=== PATIENT | female | born 1945 | race African-American/Black ===

== ENCOUNTER 2019-04-14 06:24 | Inpatient (IN) ==
[2019-04-14] MEDS ORDERED: ONDANSETRON 4 MG/2 ML VIAL IV STA (06:59)
[2019-04-14] MEDS ORDERED: SODIUM CHLORIDE 0.9% 1,000 ML IV STA (06:59)
[2019-04-14 07:09] LABS: Basophils % 0.1 % (0.0-0.8); Eosinophils % 0.1 % (0.00-10.9); Hematocrit 35.3 VOL% (35.7-47.0); Hemoglobin 10.8 GM/DL (12.0-16.0); Immature Granulocytes % 0.3 %; Immature Granulocytes Absolute 0.04 #; Lymphocytes # 1.4 10*3/uL (1.4-4.0); Lymphocytes % 9.9 % (21.3-54.2); Mean Corpuscular HGB Conc 30.6 GM/DL (32-36); Mean Corpuscular Volume 95.9 FL (87-102); Mean Platelet Volume 10.7 FL (9.6-12.0); Monocytes % 5.7 % (1.7-12.7); Neutrophils % 83.9 % (38.7-73.9); Platelet Count 233 T/CUMM (130-400); Red Blood Count 3.68 MC/CUMM (3.8-5.5); Red Cell Distribution Width 14.6 % (9.3-17.3); White Blood Count 13.7 T/CUMM (4-12)
[2019-04-14 07:30] LABS: Alanine Aminotransferase 21 U/L (13-56); Albumin 3.1 G/DL (3.4-5.0); Alkaline Phosphatase 81 U/L (45-117); Aspartate Amino Transferase 37 U/L (0-37); Blood Urea Nitrogen 48 MG/DL (7-18); Calcium 8.4 MG/DL (8.5-10.1); Glucose 125 MG/DL (74-106); Osmolality,Calculated 294.3 MOS/KG (273-304); Total Protein 6.9 G/DL (6.4-8.3)
[2019-04-14] MEDS ORDERED: ONDANSETRON 4 MG/2 ML VIAL IV PRN (08:36)
[2019-04-14] MEDS ORDERED: MORPHINE 4 MG/1 ML VIAL IV PRN (08:36)
[2019-04-14] MEDS ORDERED: ACETAMINOPHEN 325 MG TABLET PO PRN (08:36)
[2019-04-14] MEDS ORDERED: PANTOPRAZOLE 40 MG TABLET PO ONE (09:13)
[2019-04-14] MEDS ORDERED: amLODIPine 10 MG TABLET ONE (09:13)
[2019-04-14] MEDS: SODIUM CHLORIDE 0.9% 1,000 ML IV SCH (09:22)
[2019-04-14] MEDS: PANTOPRAZOLE 40 MG TABLET PO SCH (09:38)
[2019-04-14] MEDS: amLODIPine 10 MG TABLET PO SCH (09:38)
[2019-04-14 10:00] LABS: Apearance,Urine CLOUDY (Clear); Bilirubin,Urine Negative (Negative); Blood, Urine Negative (Negative); Glucose,Urine (UA) Negative (Negative); Hyaline Casts,Urine 104 /LPF (0-3); Ketones,Urine Negative (Negative); Mucus,Urine Many /LPF (Occasional); Nitrite,Urine Negative (Negative); Protein,Urine 30 MG/DL; RBC,Urine 1 /HPF (0-4); Urine Color Amber (Yellow); Urine Specific Gravity 1.026 (1.001-1.035); Urine Urobilinogen < 2.0 EU/DL (0.2-1.0); WBC,Urine 2 /HPF (0-6)
[2019-04-14] MEDS ORDERED: LEVOFLOXACIN INJ 500 MG in PREMIX 1 EACH IV ONE (10:30)
[2019-04-14] MEDS ORDERED: NALOXONE 0.4 MG/ML VIAL IV ONE (12:01)
[2019-04-14 12:19] LABS: ABG Base Excess 4.2 MMOL/L (-2.5-2.5); ABG HCO3 27.9 MMOL/L (20-26); ABG Oxygen Saturation 83.9 % (95-100); ABG PCO2 57.3 MM HG (35-48); ABG PH 7.344 (7.35-7.45); ABG PO2 53.1 MM HG (80-95); ABG TCO2 28.5 MMOL/L (23-27)
[2019-04-15 04:42] LABS: Basophils % 0.1 % (0.0-0.8); Eosinophils # 0.3 10*3/uL (0.0-0.87); Eosinophils % 2.3 % (0.00-10.9); Hemoglobin 9.6 GM/DL (12.0-16.0); Immature Granulocytes % 0.4 %; Immature Granulocytes Absolute 0.04 #; Lymphocytes # 1.5 10*3/uL (1.4-4.0); Mean Corpuscular Volume 96.1 FL (87-102); Mean Platelet Volume 10.9 FL (9.6-12.0); Monocytes % 7.2 % (1.7-12.7); Platelet Count 213 T/CUMM (130-400); Red Blood Count 3.33 MC/CUMM (3.8-5.5); Red Cell Distribution Width 14.4 % (9.3-17.3); White Blood Count 10.8 T/CUMM (4-12)
[2019-04-15 04:59] LABS: Osmolality,Calculated 292.4 MOS/KG (273-304); Risk Ratio 3.11; Thyroid Stimulating Hormone 0.251 uIU/ml (0.358-3.74)
[2019-04-15] MEDS: SODIUM CHLORIDE 0.9% 1,000 ML IV SCH ×3 (06:10→17:47)
[2019-04-15] MEDS: PANTOPRAZOLE 40 MG TABLET PO SCH (09:23)
[2019-04-15] MEDS: amLODIPine 10 MG TABLET PO SCH (09:23)
[2019-04-15] MEDS ORDERED: LEVOFLOXACIN INJ 250 MG in PREMIX 1 EACH IV SCH (10:00)
[2019-04-15] MEDS ORDERED: LEVOFLOXACIN INJ 750 MG in PREMIX 1 EACH IV SCH (11:00)
[2019-04-15] MEDS: ALBUTEROL/IPRATROPIUM 3 ML NEB RESP TX SCH ×3 (11:20→20:13)
[2019-04-15] MEDS ORDERED: LEVOFLOXACIN INJ 500 MG in PREMIX 1 EACH IV ONE (12:00)
[2019-04-15] MEDS: POLYETHYLENE GLYCOL POWDER 17 GM PACK PO SCH (14:57)
[2019-04-15] MEDS: DICYCLOMINE 10 MG CAPSULE PO SCH ×2 (14:58→21:48)
[2019-04-16] MEDS: ALBUTEROL/IPRATROPIUM 3 ML NEB RESP TX SCH ×7 (00:07→23:25)
[2019-04-16] MEDS: SODIUM CHLORIDE 0.9% 1,000 ML IV SCH ×2 (00:30→16:32)
[2019-04-16 04:34] LABS: Basophils % 0.1 % (0.0-0.8); Eosinophils # 0.1 10*3/uL (0.0-0.87); Eosinophils % 0.7 % (0.00-10.9); Hematocrit 32.1 VOL% (35.7-47.0); Hemoglobin 9.8 GM/DL (12.0-16.0); Immature Granulocytes % 0.6 %; Immature Granulocytes Absolute 0.06 #; Lymphocytes # 1.1 10*3/uL (1.4-4.0); Lymphocytes % 10.8 % (21.3-54.2); Mean Corpuscular HGB Conc 30.5 GM/DL (32-36); Mean Corpuscular Volume 94.4 FL (87-102); Mean Platelet Volume 10.5 FL (9.6-12.0); Monocytes % 6.8 % (1.7-12.7); NRBC # 0.02 10*3/uL; Platelet Count 231 T/CUMM (130-400); Red Cell Distribution Width 14.2 % (9.3-17.3); White Blood Count 10.3 T/CUMM (4-12)
[2019-04-16 04:51] LABS: Calcium 8.3 MG/DL (8.5-10.1); Osmolality,Calculated 284.3 MOS/KG (273-304)
[2019-04-16] MEDS: LEVOFLOXACIN INJ 750 MG in PREMIX 1 EACH IV SCH (09:33)
[2019-04-16] MEDS: DICYCLOMINE 10 MG CAPSULE PO SCH ×3 (10:33→20:34)
[2019-04-16] MEDS: PANTOPRAZOLE 40 MG TABLET PO SCH (10:33)
[2019-04-16] MEDS: amLODIPine 10 MG TABLET PO SCH (10:33)
[2019-04-16] MEDS: POLYETHYLENE GLYCOL POWDER 17 GM PACK PO SCH (10:33)
[2019-04-16] MEDS: predniSONE 20 MG TABLET PO SCH (12:01)
[2019-04-16] MEDS: CLINDAMYCIN INJ 600 MG in PREMIX 1 EACH IV SCH ×2 (12:01→20:34)
[2019-04-16] MEDS: ENOXAPARIN 40 MG/0.4 ML SYRINGE SUBCUT SCH (12:10)
[2019-04-17] MEDS: ALBUTEROL/IPRATROPIUM 3 ML NEB RESP TX SCH ×6 (03:35→23:11)
[2019-04-17] MEDS: CLINDAMYCIN INJ 600 MG in PREMIX 1 EACH IV SCH ×3 (04:53→22:03)
[2019-04-17 04:54] LABS: Basophils % 0.2 % (0.0-0.8); Hematocrit 32.6 VOL% (35.7-47.0); Immature Granulocytes Absolute 0.11 #; Mean Corpuscular HGB Conc 30.7 GM/DL (32-36); Mean Corpuscular Volume 94.5 FL (87-102); Mean Platelet Volume 10.8 FL (9.6-12.0); Monocytes % 5.6 % (1.7-12.7); Neutrophils % 84.2 % (38.7-73.9); Platelet Count 280 T/CUMM (130-400); Red Blood Count 3.45 MC/CUMM (3.8-5.5); Red Cell Distribution Width 14.2 % (9.3-17.3); White Blood Count 11.5 T/CUMM (4-12)
[2019-04-17 05:17] LABS: Calcium 8.9 MG/DL (8.5-10.1); Osmolality,Calculated 282.3 MOS/KG (273-304)
[2019-04-17] MEDS: PANTOPRAZOLE 40 MG TABLET PO SCH (08:47)
[2019-04-17] MEDS: amLODIPine 10 MG TABLET PO SCH (08:47)
[2019-04-17] MEDS: predniSONE 20 MG TABLET PO SCH (08:47)
[2019-04-17] MEDS: DICYCLOMINE 10 MG CAPSULE PO SCH ×3 (08:47→22:03)
[2019-04-17] MEDS: LEVOFLOXACIN INJ 750 MG in PREMIX 1 EACH IV SCH (08:47)
[2019-04-17] MEDS: POLYETHYLENE GLYCOL POWDER 17 GM PACK PO SCH (08:47)
[2019-04-17] MEDS ORDERED: guaiFENesin 200 MG/10 ML UDCUP PO PRN (08:59)
[2019-04-17] MEDS: LOSARTAN 25 MG TABLET PO SCH (09:41)
[2019-04-17] MEDS ORDERED: FUROSEMIDE 40 MG/4 ML VIAL IV ONE (10:23)
[2019-04-17] MEDS: ENOXAPARIN 40 MG/0.4 ML SYRINGE SUBCUT SCH (11:12)
[2019-04-17] MEDS: MIRTAZAPINE 15 MG TABLET PO SCH (22:03)
[2019-04-18 01:16] LABS: ABG Base Excess 7.2 MMOL/L (-2.5-2.5); ABG Oxygen Saturation 95.4 % (95-100); ABG PCO2 45.1 MM HG (35-48); ABG PH 7.458 (7.35-7.45); ABG PO2 73.5 MM HG (80-95)
[2019-04-18] MEDS: CLINDAMYCIN INJ 600 MG in PREMIX 1 EACH IV SCH ×3 (01:23→17:20)
[2019-04-18] MEDS: ALBUTEROL/IPRATROPIUM 3 ML NEB RESP TX SCH ×6 (03:25→23:38)
[2019-04-18] MEDS: SODIUM CHLORIDE 0.9% 1,000 ML IV SCH (08:46)
[2019-04-18] MEDS: predniSONE 20 MG TABLET PO SCH (08:49)
[2019-04-18] MEDS: amLODIPine 10 MG TABLET PO SCH (08:49)
[2019-04-18] MEDS: DICYCLOMINE 10 MG CAPSULE PO SCH ×3 (08:50→20:56)
[2019-04-18] MEDS: PANTOPRAZOLE 40 MG TABLET PO SCH (08:50)
[2019-04-18] MEDS: POLYETHYLENE GLYCOL POWDER 17 GM PACK PO SCH (08:50)
[2019-04-18] MEDS: LOSARTAN 25 MG TABLET PO SCH (08:50)
[2019-04-18] MEDS: LEVOFLOXACIN INJ 750 MG in PREMIX 1 EACH IV SCH (08:51)
[2019-04-18] MEDS: ENOXAPARIN 40 MG/0.4 ML SYRINGE SUBCUT SCH ×2 (13:39→17:20)
[2019-04-18] MEDS: MIRTAZAPINE 15 MG TABLET PO SCH (20:56)
[2019-04-19] MEDS: CLINDAMYCIN INJ 600 MG in PREMIX 1 EACH IV SCH ×3 (01:36→17:49)
[2019-04-19] MEDS: ALBUTEROL/IPRATROPIUM 3 ML NEB RESP TX SCH ×6 (03:13→23:59)
[2019-04-19 05:19] LABS: Basophils % 0.1 % (0.0-0.8); Hematocrit 33.1 VOL% (35.7-47.0); Hemoglobin 10.2 GM/DL (12.0-16.0); Immature Granulocytes % 1.7 %; Immature Granulocytes Absolute 0.21 #; Lymphocytes # 1.6 10*3/uL (1.4-4.0); Lymphocytes % 12.9 % (21.3-54.2); Mean Corpuscular HGB Conc 30.8 GM/DL (32-36); Mean Corpuscular Volume 93.8 FL (87-102); Mean Platelet Volume 10.9 FL (9.6-12.0); Monocytes % 5.5 % (1.7-12.7); Neutrophils % 79.8 % (38.7-73.9); Platelet Count 298 T/CUMM (130-400); Red Blood Count 3.53 MC/CUMM (3.8-5.5); Red Cell Distribution Width 14.7 % (9.3-17.3); White Blood Count 12.1 T/CUMM (4-12)
[2019-04-19 05:36] LABS: Osmolality,Calculated 288.1 MOS/KG (273-304)
[2019-04-19 06:54] LABS: Alanine Aminotransferase 18 U/L (13-56); Albumin 2.8 G/DL (3.4-5.0); Alkaline Phosphatase 74 U/L (45-117); Aspartate Amino Transferase 16 U/L (0-37); Bilirubin,Indirect 0.3 MG/DL (0.0-1.0); Bilirubin,Total < 0.39 MG/DL (0.2-1.0); Total Protein 7.1 G/DL (6.4-8.3)
[2019-04-19] MEDS: predniSONE 20 MG TABLET PO SCH (09:28)
[2019-04-19] MEDS: amLODIPine 10 MG TABLET PO SCH (09:29)
[2019-04-19] MEDS: LOSARTAN 25 MG TABLET PO SCH (09:29)
[2019-04-19] MEDS: DICYCLOMINE 10 MG CAPSULE PO SCH ×3 (09:29→20:44)
[2019-04-19] MEDS: LEVOFLOXACIN INJ 750 MG in PREMIX 1 EACH IV SCH (09:29)
[2019-04-19] MEDS: POLYETHYLENE GLYCOL POWDER 17 GM PACK PO SCH (09:29)
[2019-04-19] MEDS: PANTOPRAZOLE 40 MG TABLET PO SCH (09:29)
[2019-04-19] MEDS ORDERED: FUROSEMIDE 40 MG/4 ML VIAL IV ONE (10:32)
[2019-04-19] MEDS: ENOXAPARIN 40 MG/0.4 ML SYRINGE SUBCUT SCH (12:27)
[2019-04-20] MEDS: CLINDAMYCIN INJ 600 MG in PREMIX 1 EACH IV SCH ×3 (01:17→16:46)
[2019-04-20] MEDS: ALBUTEROL/IPRATROPIUM 3 ML NEB RESP TX SCH ×6 (03:55→23:44)
[2019-04-20] MEDS: LOSARTAN 25 MG TABLET PO SCH (08:53)
[2019-04-20] MEDS: amLODIPine 10 MG TABLET PO SCH (08:53)
[2019-04-20] MEDS: DICYCLOMINE 10 MG CAPSULE PO SCH ×3 (08:53→20:28)
[2019-04-20] MEDS: PANTOPRAZOLE 40 MG TABLET PO SCH (08:53)
[2019-04-20] MEDS: POLYETHYLENE GLYCOL POWDER 17 GM PACK PO SCH (08:53)
[2019-04-20] MEDS: predniSONE 20 MG TABLET PO SCH (08:53)
[2019-04-20] MEDS: ARFORMOTEROL 15 MCG/2 ML NEB RESP TX SCH ×2 (11:00→19:17)
[2019-04-20] MEDS ORDERED: ACETYLCYSTEINE 20% 800 MG/4 ML VIAL RESP TX SCH (11:00)
[2019-04-20] MEDS: ENOXAPARIN 40 MG/0.4 ML SYRINGE SUBCUT SCH (13:03)
[2019-04-20] MEDS: FUROSEMIDE 40 MG/4 ML VIAL IV SCH (13:04)
[2019-04-20] MEDS: LEVOFLOXACIN 500 MG TABLET PO SCH (13:04)
[2019-04-21] MEDS: CLINDAMYCIN INJ 600 MG in PREMIX 1 EACH IV SCH ×3 (00:44→17:08)
[2019-04-21] MEDS: ALBUTEROL/IPRATROPIUM 3 ML NEB RESP TX SCH ×6 (04:45→23:00)
[2019-04-21 05:27] LABS: Basophils % 0.2 % (0.0-0.8); Eosinophils % 0.2 % (0.00-10.9); Hematocrit 33.9 VOL% (35.7-47.0); Hemoglobin 10.2 GM/DL (12.0-16.0); Immature Granulocytes % 2.8 %; Immature Granulocytes Absolute 0.34 #; Lymphocytes # 2.4 10*3/uL (1.4-4.0); Mean Corpuscular HGB Conc 30.1 GM/DL (32-36); Mean Corpuscular Volume 94.7 FL (87-102); Mean Platelet Volume 9.9 FL (9.6-12.0); Monocytes % 6.4 % (1.7-12.7); NRBC # 0.03 10*3/uL; Neutrophils % 71.4 % (38.7-73.9); Platelet Count 280 T/CUMM (130-400); Red Blood Count 3.58 MC/CUMM (3.8-5.5); Red Cell Distribution Width 14.6 % (9.3-17.3); White Blood Count 12.4 T/CUMM (4-12)
[2019-04-21 05:46] LABS: Calcium 8.7 MG/DL (8.5-10.1); Osmolality,Calculated 287.1 MOS/KG (273-304)
[2019-04-21 06:02] LABS: Hypochromasia 1+
[2019-04-21 06:03] LABS: Platelet Estimate Normal
[2019-04-21] MEDS: ARFORMOTEROL 15 MCG/2 ML NEB RESP TX SCH ×2 (08:06→18:40)
[2019-04-21] MEDS: LOSARTAN 25 MG TABLET PO SCH (09:35)
[2019-04-21] MEDS: predniSONE 20 MG TABLET PO SCH (09:35)
[2019-04-21] MEDS: PANTOPRAZOLE 40 MG TABLET PO SCH (09:35)
[2019-04-21] MEDS: amLODIPine 10 MG TABLET PO SCH (09:35)
[2019-04-21] MEDS: POLYETHYLENE GLYCOL POWDER 17 GM PACK PO SCH (09:35)
[2019-04-21] MEDS: DICYCLOMINE 10 MG CAPSULE PO SCH ×3 (09:35→21:22)
[2019-04-21] MEDS: FUROSEMIDE 40 MG/4 ML VIAL IV SCH (09:36)
[2019-04-21] MEDS: LEVOFLOXACIN 500 MG TABLET PO SCH (12:32)
[2019-04-21] MEDS: ENOXAPARIN 40 MG/0.4 ML SYRINGE SUBCUT SCH (12:32)
[2019-04-22] MEDS: CLINDAMYCIN INJ 600 MG in PREMIX 1 EACH IV SCH ×2 (01:48→10:22)
[2019-04-22] MEDS: ALBUTEROL/IPRATROPIUM 3 ML NEB RESP TX SCH ×3 (03:00→11:11)
[2019-04-22] MEDS: ARFORMOTEROL 15 MCG/2 ML NEB RESP TX SCH (07:26)
[2019-04-22 08:11] VITALS: BP 141/73
[2019-04-22] MEDS ORDERED: predniSONE 20 MG TABLET PO SCH (09:31)
[2019-04-22] MEDS: amLODIPine 10 MG TABLET PO SCH (10:23)
[2019-04-22] MEDS: POLYETHYLENE GLYCOL POWDER 17 GM PACK PO SCH (10:23)
[2019-04-22] MEDS: DICYCLOMINE 10 MG CAPSULE PO SCH (10:23)
[2019-04-22] MEDS: LOSARTAN 25 MG TABLET PO SCH (10:24)
[2019-04-22] MEDS: PANTOPRAZOLE 40 MG TABLET PO SCH (10:24)
[2019-04-22] MEDS: FUROSEMIDE 40 MG/4 ML VIAL IV SCH (10:24)
[2019-04-22] MEDS: predniSONE 20 MG TABLET PO SCH (11:01)
== END 2019-04-22 12:36 | disposition home health service (06) | DRG 444 ==
LOC: N.ED 06:24 → N.EDINP 08:11 → SUATTDRO 08:11 → N.EDINP 10:57 → N.5E 11:02
PROVIDERS: ADMIT Internal Medicine; ATTEND Internal Medicine

== ENCOUNTER 2019-04-30 00:24 | Inpatient (IN) ==
[2019-04-30] MEDS ORDERED: HYDROmorphone 2 MG/1 ML VIAL IV STA (02:32)
[2019-04-30] MEDS ORDERED: SODIUM CHLORIDE 0.9% 500 ML IV STA (02:32)
[2019-04-30] MEDS ORDERED: PANTOPRAZOLE 40 MG VIAL IV STA (02:32)
[2019-04-30] MEDS ORDERED: ONDANSETRON 4 MG/2 ML VIAL IV STA (02:32)
[2019-04-30 03:48] LABS: Basophils % 0.1 % (0.0-0.8); Eosinophils % 0.3 % (0.00-10.9); Hematocrit 36.4 VOL% (35.7-47.0); Hemoglobin 11.2 GM/DL (12.0-16.0); Immature Granulocytes % 0.4 %; Immature Granulocytes Absolute 0.04 #; Lymphocytes # 1.2 10*3/uL (1.4-4.0); Mean Corpuscular HGB Conc 30.8 GM/DL (32-36); Mean Corpuscular Volume 93.3 FL (87-102); Mean Platelet Volume 9.5 FL (9.6-12.0); Monocytes % 5.2 % (1.7-12.7); Platelet Count 320 T/CUMM (130-400); Red Cell Distribution Width 14.5 % (9.3-17.3)
[2019-04-30] MEDS ORDERED: ONDANSETRON 4 MG/2 ML VIAL IV PRN (04:02)
[2019-04-30 04:19] LABS: Alanine Aminotransferase 11 U/L (13-56); Albumin 2.8 G/DL (3.4-5.0); Alkaline Phosphatase 77 U/L (45-117); Amylase 52 U/L (25-115); Aspartate Amino Transferase 8 U/L (0-37); Blood Urea Nitrogen 9 MG/DL (7-18); Calcium 9.3 MG/DL (8.5-10.1); Glucose 131 MG/DL (74-106); Osmolality,Calculated 273.8 MOS/KG (273-304); Total Protein 7.7 G/DL (6.4-8.3)
[2019-04-30] MEDS: MORPHINE 4 MG/1 ML VIAL IV PRN ×4 (06:02→18:58)
[2019-04-30 06:42] LABS: Apearance,Urine CLEAR (Clear); Bacteria,Urine Occasional /HPF (Few); Bilirubin,Urine Negative (Negative); Blood, Urine Negative (Negative); Glucose,Urine (UA) Negative (Negative); Ketones,Urine 20 mg/dL (Negative); Mucus,Urine Occasional /LPF (Occasional); Nitrite,Urine Negative (Negative); Protein,Urine Negative; RBC,Urine 4 /HPF (0-4); Squamous Epithelial Cell,Urine Occasional /HPF (0-10); Urine Color Yellow (Yellow); Urine Specific Gravity > 1.060 (1.001-1.035); Urine Urobilinogen < 2.0 EU/DL (0.2-1.0); WBC,Urine 1 /HPF (0-6)
[2019-04-30] MEDS ORDERED: BISACODYL 5 MG TABLET PO PRN (07:51)
[2019-04-30] MEDS ORDERED: POTASSIUM CHLORIDE INJ 10 MEQ in SODIUM CHLORIDE 0.9% 1,000 ML IV SCH (08:00)
[2019-04-30] MEDS ORDERED: PANTOPRAZOLE 40 MG VIAL IV SCH (09:00)
[2019-04-30] MEDS ORDERED: FAMOTIDINE 20 MG/2 ML VIAL IV SCH (09:00)
[2019-04-30] MEDS ORDERED: ENOXAPARIN 40 MG/0.4 ML SYRINGE SUBCUT SCH (09:00)
[2019-04-30] MEDS ORDERED: LORazepam 2 MG/1 ML VIAL IV STA (10:29)
[2019-04-30] MEDS ORDERED: SODIUM CHLORIDE 0.9% 1,000 ML IV SCH (12:30)
[2019-04-30 19:46] VITALS: BP 143/78
== END 2019-04-30 19:52 | disposition hospice, home (50) | DRG 392 ==
LOC: N.ED 00:24 → N.EDINP 04:02 → N.3E 04:57
PROVIDERS: ADMIT Hospitalist; ATTEND Hospitalist

== ENCOUNTER 2019-05-27 19:01 | Observation (INO) ==
[2019-05-27] MEDS ORDERED: NITROGLYCERIN 2% OINT 1 INCH/GM PACK TOP STA (20:16)
[2019-05-27] MEDS ORDERED: ALUM/MAG/SIMETH/LIDO VISC 1:1 30 ML BOTTLE PO STA (20:16)
[2019-05-27] MEDS ORDERED: ASPIRIN 325 MG TABLET PO STA (20:16)
[2019-05-27] MEDS ORDERED: MORPHINE 4 MG/1 ML VIAL IV STA (20:16)
[2019-05-27] MEDS ORDERED: ONDANSETRON 4 MG/2 ML VIAL IV STA (20:16)
[2019-05-27 21:21] LABS: Basophils % 0.2 % (0.0-0.8); Eosinophils # 0.2 10*3/uL (0.0-0.87); Eosinophils % 3.6 % (0.00-10.9); Hematocrit 33.6 VOL% (35.7-47.0); Immature Granulocytes % 0.3 %; Immature Granulocytes Absolute 0.02 #; Lymphocytes # 2.4 10*3/uL (1.4-4.0); Lymphocytes % 41.2 % (21.3-54.2); Mean Corpuscular HGB Conc 29.8 GM/DL (32-36); Mean Corpuscular Volume 93.9 FL (87-102); Mean Platelet Volume 11.1 FL (9.6-12.0); Monocytes % 9.7 % (1.7-12.7); Platelet Count 201 T/CUMM (130-400); Red Blood Count 3.58 MC/CUMM (3.8-5.5); Red Cell Distribution Width 14.7 % (9.3-17.3); White Blood Count 5.9 T/CUMM (4-12)
[2019-05-27 21:44] LABS: INR 0.9; PT Patient Result 9.8 SECS
[2019-05-27 21:47] LABS: Alanine Aminotransferase 18 U/L (13-56); Albumin 3.1 G/DL (3.4-5.0); Alkaline Phosphatase 91 U/L (45-117); Aspartate Amino Transferase 17 U/L (0-37); Blood Urea Nitrogen 9 MG/DL (7-18); Calcium 8.7 MG/DL (8.5-10.1); Glucose 100 MG/DL (74-106); Osmolality,Calculated 281.1 MOS/KG (273-304); Total Protein 6.8 G/DL (6.4-8.3)
[2019-05-27] MEDS ORDERED: NICOTINE 21 MG/24 HR PATCH TRANSDERM PRN (23:56)
[2019-05-27] MEDS ORDERED: MAGNESIUM SULF RIDER 2 GM in PREMIX 1 EACH IV PRN (23:56)
[2019-05-27] MEDS ORDERED: MAGNESIUM SULF RIDER 4 GM in PREMIX 1 EACH IV PRN (23:56)
[2019-05-27] MEDS ORDERED: ONDANSETRON 4 MG/2 ML VIAL IV PRN (23:56)
[2019-05-27] MEDS ORDERED: MORPHINE 4 MG/1 ML VIAL IV PRN (23:56)
[2019-05-27] MEDS ORDERED: ACETAMINOPHEN 325 MG TABLET PO PRN (23:56)
[2019-05-27] MEDS ORDERED: diphenhydrAMINE CAP 25 MG CAPSULE PO PRN (23:56)
[2019-05-28 00:48] LABS: Risk Ratio 4.52; Thyroid Stimulating Hormone 0.663 uIU/ml (0.358-3.74); VLDL CHOLESTEROL 28.6 MG/DL
[2019-05-28] MEDS ORDERED: POLYETHYLENE GLYCOL POWDER 17 GM PACK PO PRN (02:00)
[2019-05-28] MEDS ORDERED: ONDANSETRON 4 MG TABLET PO PRN (02:00)
[2019-05-28] MEDS ORDERED: BISACODYL 5 MG TABLET PO PRN (02:00)
[2019-05-28 05:05] LABS: Basophils % 0.2 % (0.0-0.8); Eosinophils # 0.2 10*3/uL (0.0-0.87); Eosinophils % 5.7 % (0.00-10.9); Hematocrit 30.2 VOL% (35.7-47.0); Hemoglobin 9.2 GM/DL (12.0-16.0); Lymphocytes # 1.8 10*3/uL (1.4-4.0); Lymphocytes % 43.8 % (21.3-54.2); Mean Corpuscular HGB Conc 30.5 GM/DL (32-36); Mean Corpuscular Volume 93.8 FL (87-102); Mean Platelet Volume 11.8 FL (9.6-12.0); Monocytes % 11.2 % (1.7-12.7); Neutrophils % 39.1 % (38.7-73.9); Platelet Count 178 T/CUMM (130-400); Red Blood Count 3.22 MC/CUMM (3.8-5.5); Red Cell Distribution Width 14.6 % (9.3-17.3); White Blood Count 4.2 T/CUMM (4-12)
[2019-05-28 05:37] LABS: Albumin 2.6 G/DL (3.4-5.0); Bilirubin,Total 0.8 MG/DL (0.2-1.0); Calcium 8.5 MG/DL (8.5-10.1); Osmolality,Calculated 279.1 MOS/KG (273-304); Total Protein 6.4 G/DL (6.4-8.3)
[2019-05-28] MEDS ORDERED: PANTOPRAZOLE 40 MG TABLET PO SCH (09:00)
[2019-05-28] MEDS ORDERED: CITALOPRAM 40 MG TABLET PO SCH (09:00)
[2019-05-28] MEDS ORDERED: LOSARTAN 50 MG TABLET PO SCH (09:37)
[2019-05-28] MEDS ORDERED: ASPIRIN EC 81 MG TABLET PO SCH (10:00)
[2019-05-28] MEDS: DICYCLOMINE 10 MG CAPSULE PO SCH ×2 (10:15→13:15)
[2019-05-28] MEDS: POTASSIUM CHLORIDE 20 MEQ TABLET PO PRN ×3 (10:15→14:57)
[2019-05-28 12:14] VITALS: BP 173/77
[2019-05-28] MEDS ORDERED: hydrALAZINE 20 MG/1 ML VIAL IV PRN (14:03)
[2019-05-28] MEDS ORDERED: ACETAMINOPHEN 325 MG TABLET PO SCH (15:00)
[2019-05-28] MEDS ORDERED: GABAPENTIN 100 MG CAPSULE PO SCH (15:00)
[2019-05-28] MEDS ORDERED: ALUM/MAG/SIMETH/LIDO VISC 1:1 30 ML BOTTLE PO ONE (15:15)
[2019-05-28] MEDS ORDERED: HYOSCYAMINE 0.125 MG TABLET SL SCH (15:15)
[2019-05-28] MEDS ORDERED: ROSUVASTATIN 10 MG TABLET PO ONE (15:26)
[2019-05-29] MEDS ORDERED: ENOXAPARIN 40 MG/0.4 ML SYRINGE SUBCUT SCH (09:00)
[2019-05-29] MEDS ORDERED: ROSUVASTATIN 10 MG TABLET PO SCH (21:00)
== END 2019-05-28 16:25 | disposition home or self-care (01) ==
LOC: N.ED 19:01 → N.EDINP 19:01 → N.TELES 05-28 00:46
PROVIDERS: ADMIT Family Medicine; ATTEND Family Medicine